=== PATIENT | male | born 1990 | race Caucasian/White ===

== ENCOUNTER 2020-12-03 09:08 | Emergency (ER) | payer OTHER ==
[2020-12-03 09:34] LABS: HEMOGLOBIN 14.7 gm/dl (14.0-17.5); RED BLOOD COUNT 4.78 M/UL (4.20-5.50); WHITE BLOOD COUNT 6.8 K/UL (4.5-11.0)
[2020-12-03 10:55] LABS: BUN/CREATININE RATIO 15 (0-10)
== END 2020-12-03 13:05 | disposition home or self-care (01) ==
LOC: ER1 09:08
PROVIDERS: Emergency Medicine
DX: R07.9 Chest pain, unspecified (principal); F17.210 Nicotine dependence, cigarettes, uncomplicated; Z90.89 Acquired absence of other organs; Z20.822 Contact with and (suspected) exposure to COVID-19
CPT/HCPCS: 0240U; 71045; 80053; 80307; 82550; 82553; 83690; 83874; 84439; 84443; 84484; 85025; 85379; 93005; 99285

== ENCOUNTER 2021-02-02 19:18 | Emergency (ER) | payer OTHER ==
[2021-02-02 22:07] LABS: RED BLOOD COUNT 5.17 M/UL (4.20-5.50); WHITE BLOOD COUNT 7.8 K/UL (4.5-11.0)
[2021-02-02 22:27] LABS: BUN/CREATININE RATIO 10 (0-10)
[2021-02-02] MEDS ORDERED: ZOFRAN ODT 4 MG4 MG PO (23:31)
[2021-02-02] MEDS ORDERED: LODINE CAP 300300 MG PO (23:31)
== END 2021-02-03 00:57 | disposition home or self-care (01) ==
LOC: ER1 19:18
PROVIDERS: Physician Assistant
DX: R11.2 Nausea with vomiting, unspecified (principal); K08.89 Other specified disorders of teeth and supporting structures; F17.210 Nicotine dependence, cigarettes, uncomplicated; Z88.1 Allergy status to other antibiotic agents; Z88.8 Allergy status to other drugs, medicaments and biological substances; Z90.89 Acquired absence of other organs
CPT/HCPCS: 80053; 85025; 96374; 99284; J1885; J7030